=== PATIENT | female | born 1970 | race American Indian/Alaskan Native ===

== ENCOUNTER 2016-12-06 09:56 | Emergency (ER) | payer OTHER ==
[2016-12-06 11:06] VITALS: BP 157/97
[2016-12-06] MEDS ORDERED: LIDOCAINE VISCOUS 2% PO ONE (12:43)
[2016-12-06] MEDS ORDERED: TORADOL IM ONE (12:43)
[2016-12-06] MEDS ORDERED: DECADRON PO ONE (13:30)
[2016-12-06] MEDS ORDERED: NORCO 5/325 PO ONE (13:57)
[2016-12-06] MEDS ORDERED: ZOFRAN ODT PO ONE (13:57)
[2016-12-06] MEDS ORDERED: BENADRYL PO ONE (13:57)
--- NOTE | 2016-12-06 15:07 | Emergency Department Report ---
Entered by STEFFANY NIELSEN, acting as scribe for NATY RAO PA. - General Chief Complaint: Sore Throat Stated Complaint: SORE THROAT/EARACHE/FEVER Time Seen by Provider: 12/06/16 11:25 Source: patient Mode of arrival: Ambulatory Limitations: No Limitations - History of Present Illness Initial Comments: 46 y/o female with Hx of HTN, presents to the ED c/o non-productive cough beginning 5 days ago. The symptoms are not alleviated by OTC cough medication. Associated symptoms of bilateral earache, sore throat, headache, subjective fever, chills, nausea, abdominal soreness due to coughing, and generalized body aches, but she denies weakness, numbness, vomiting, SOB, abdominal pain, and chest pain. Patient is compliant with her prescribed HCTZ for HTN. Positive for history of migraine headaches. Patient states that this feels like her regular migraine headache. No head injury or trauma. Patient is currently not on any abortive therapy. MD Complaint: fever (subjective), cough (non-productive), sore throat, other ( bilateral earache) -: days(s) (4 days) Severity: moderate Consistency: constant Improves With: nothing, other (patient has been taking OTC cough medication) Worsens With: nothing Context: other (patient denies sick contacts) Associated Symptoms: fever (subjective), chills, myalgias (generalized body aches), headache, sore throat, cough (non-productive), nausea, ear pain ( bilateral ), other (abdominal soreness from coughing). denies: chest pain, shortness of breath, vomiting - Related Data Home Medications Medication Instructions Recorded Confirmed Last Taken Hydrochlorothiazide [HCTZ] 50 mg PO QDAY 08/30/16 08/30/16 08/29/16 Previous Rx's Medication Instructions Recorded Last Taken Type HYDROcodone/APAP 5-325 [Jackson 1 each PO Q6HR PRN #10 tablet 08/30/16 Unknown Rx 5/325] Fluticasone [Flonase] 1 spray NS QDAY #1 bottle 12/06/16 Unknown Rx Naproxen [Naprosyn] 500 mg PO BID #30 tablet 12/06/16 Unknown Rx Promethazine /Codeine 5 ml PO Q6H PRN #100 ml 12/06/16 Unknown Rx [Phenergan/Codeine 6.25-10 mg/5 ml] Allergies Allergy/AdvReac Type Severity Reaction Status Date / Time No Known Allergies Allergy Verified 12/06/16 11:06 ED Review of Systems Comment: All other systems reviewed and negative Constitutional: chills, fever (subjective fever), other (generalized body aches) ENT: ear pain (bilaterally), throat pain Respiratory: cough (non-productive). denies: shortness of breath Cardiovascular: denies: chest pain Gastrointestinal: nausea, other (abdominal soreness from coughing). denies: abdominal pain, vomiting Neurological: headache. denies: weakness, numbness ED Past Medical Hx - Past Medical History Hx Hypertension: Yes - Surgical History Additional Surgical History: TUBAL LIGATION - Social History Smoking Status: Never Smoker Substance Use Type: None - Medications Home Medications: Home Medications Medication Instructions Recorded Confirmed Last Taken Type HYDROcodone/APAP 5-325 [Jackson 1 each PO Q6HR PRN #10 tablet 08/30/16 Unknown Rx 5/325] Hydrochlorothiazide [HCTZ] 50 mg PO QDAY 08/30/16 08/30/16 08/29/16 History Fluticasone [Flonase] 1 spray NS QDAY #1 bottle 12/06/16 Unknown Rx Naproxen [Naprosyn] 500 mg PO BID #30 tablet 12/06/16 Unknown Rx Promethazine /Codeine 5 ml PO Q6H PRN #100 ml 12/06/16 Unknown Rx [Phenergan/Codeine 6.25-10 mg/5 ml] ED Physical Exam - General Limitations: No Limitations - Neurological Exam Neurological exam: Present: alert, oriented X3, CN II-XII intact, normal gait. Absent: motor sensory deficit - Expanded Neurological Exam Expanded Patient oriented to: Present: person, place, time Speech: Present: fluid speech Cranial nerves: EOM's Intact: Normal, Facial Sensation: Normal Cerebellar function: Finger to Nose: Normal, Romberg: Normal Motor strength exam: RUE: 5, LUE: 5, RLE: 5, LLE: 5 Best Eye Response (Radha): (4) open spontaneously Best Motor Response ([place]): (6) obeys commands Best Verbal Response (Radha): (5) oriented Radha Total: 15 - Other Other exam information: GENERAL: The patient is well-developed and well-nourished. Patient is in NAD. HEAD: Normocephalic. Atraumatic. EYES: Extraocular motions are intact, PERRL. EARS: External auditory canals and tympanic membranes clear; hearing grossly intact. NOSE: Normal nasal mucosa with minimal nasal discharge. THROAT: Bilateral tonsilmegaly, posterior pharynx is erythematous. No exudate. Airway is intact. NECK: Supple, full ROM. Positive bilateral anterior cervical lymphadenopathy. No meningitic signs are noted. CHEST/LUNGS: Clear to auscultation throughout. HEART/CARDIOVASCULAR: Regular rate and rhythm. No murmurs, rubs or gallops. ABDOMEN: Abdomen is soft, nontender. Bowel sounds normoactive. No guarding or rebound tenderness. EXTREMITIES: No cyanosis, clubbing or edema. Peripheral pulses intact. Capillary refill less than 2 seconds. ED Course Vital Signs 12/06/16 11:02 Temperature 98.2 F Pulse Rate 93 H Respiratory 18 Rate Blood Pressure 157/97 O2 Sat by Pulse 100 Oximetry ED Medical Decision Making - Lab Data Vital Signs 12/06/16 11:02 Temperature 98.2 F Pulse Rate 93 H Respiratory 18 Rate Blood Pressure 157/97 O2 Sat by Pulse 100 Oximetry - Medical Decision Making Patient presents complaining of non-productive cough beginning 5 days ago. Her rapid flu and strep is negative. Patient was given Toradol, Benadryl, Zofran and Jackson for her headache and reported symptomatic relief. Patient was given Decadron and lidocaine by mouth and reports symptomatic relief. Patient is in no acute distress at this time, non-febrile with normal vital signs. She will be discharged home on promethazine/codeine, Flonase and the person and and is encouraged to follow up with a primary care provider. She is encouraged to return to the emergency room for any worsening symptoms. ED Disposition Clinical Impression: URI (upper respiratory infection) Qualifiers: URI type: unspecified URI Qualified Code(s): J06.9 - Acute upper respiratory infection, unspecified Pharyngitis Qualifiers: Pharyngitis/tonsillitis etiology: unspecified etiology Qualified Code(s): J02.9 - Acute pharyngitis, unspecified Disposition: DISCHARGED TO HOME OR SELFCARE Is pt being admited?: No Does the pt Need Aspirin: No Condition: Stable Instructions: Pharyngitis (ED), Upper Respiratory Infection (ED) Additional Instructions: Follow-up with primary care provider. Return to the emergency department if symptoms worsen. Prescriptions: Fluticasone [Flonase] 1 spray NS QDAY #1 bottle Naproxen [Naprosyn] 500 mg PO BID #30 tablet Promethazine /Codeine [Phenergan/Codeine 6.25-10 mg/5 ml] 5 ml PO Q6H PRN #100 ml PRN Reason: cough Referrals: PRIMARY CARE, [Primary Care Provider] - 3-5 Days [facility] [Outside] - 3-5 Days Forms: Work/School Release Form(ED) Time of Disposition: 12:42 This documentation as recorded by the GIA joe GRACE,accurately reflects the service I personally performed and the decisions made by MAIRA king NATASHA, PA.
== END 2016-12-06 15:18 | disposition home or self-care (01) ==
LOC: ED 09:56
DX: J06.9 Acute upper respiratory infection, unspecified (principal); J02.9 Acute pharyngitis, unspecified; I10 Essential (primary) hypertension; Z98.51 Tubal ligation status
CPT/HCPCS: 87116; 87400; 87430; 96372; 99283; J1885; J8540; Q0162

== ENCOUNTER 2019-03-19 13:40 | Inpatient (IN) | payer OTHER ==
[2019-03-19] MEDS ORDERED: ZOFRAN IV ONE (14:09)
[2019-03-19] MEDS ORDERED: BENTYL PO ONE (14:09)
[2019-03-19] MEDS ORDERED: PEPCID IV ONE (14:09)
[2019-03-19] MEDS ORDERED: CARAFATE PO ONE (14:09)
[2019-03-19] MEDS ORDERED: NACL 0.9% 1000 ML 1,000 ML IV ONE (14:09)
--- NOTE | 2019-03-19 14:13 | Emergency Department Report ---
ED General Adult HPI - General Chief complaint: Chest Pain Stated complaint: CP Time Seen by Provider: 03/19/19 13:53 Source: patient, EMS (ems notes not available at time of chart dictation), RN notes reviewed, old records reviewed Mode of arrival: Stretcher Limitations: No Limitations - History of Present Illness Initial comments: This is a pleasant 49-year-old female. The patient is not known to this provider previously. Patient was admitted to this hospital August 2018 for chest pain. During that time, she had a CT scan of her chest which was negative for pulmonary embolism or thoracic aortic aneurysm or dissection. The patient had a cardiac nuclear stress test which was negative for ischemic findings. Patient has a history of hypertension, obesity, possible GERD, gastritis. Apparently, she was recently diagnosed with presumed type 2 diabetes. Outpatient laboratory studies have recently demonstrated a hemoglobin A1c of 9.5. Outpatient laboratory studies recently showed a blood sugar of 476, and nonspecific transaminitis, also found to have elevated triglycerides, and HDL, and elevated LDL. Patient presents to the emergency room today with complaint of nontraumatic central chest wall pressure, and sensation of almost passing out 6 days ago, and 4 days ago. 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 The patient endorses she did not lose consciousness. The patient endorses no DVT or pulmonary embolism risk factors. The next day, she had no symptoms. Patient states the next day, , she was at work, and again felt hot, lightheaded, and almost passed out. However, she did not pass out. The chest wall pain is central and moved to the right and left breast. There is no radiation to the back, arms or neck. Patient indicates no recent aspirin use. Patient states that she feels short of breath, but has difficulty further explaining. The patient states no exertional dyspnea, and no diaphoresis. She describes nonspecific abdominal cramping, and a few episodes of nonbloody, nonbilious emesis. Currently, she has mild abdominal cramping, and chest pressure. -: Gradual, days(s) Location: chest, abdomen Radiation: non-radiation Quality: aching Consistency: intermittent Improves with: other (chest wall pain increases with palpation. It decreases with rest. It increases with nausea and vomiting.) Worsens with: none Associated Symptoms: chest pain, nausea/vomiting - Related Data Previous Rx's Medication Instructions Recorded Last Taken Type Aspirin EC 81 mg PO QDAY #30 tablet 08/21/18 Unknown Rx AtorvaSTATin [Lipitor] 40 mg PO QHS #30 tablet 08/21/18 Unknown Rx Butalb/Acetamin/Caff 50-325-40 1 tab PO Q6HR PRN #10 tab 08/21/18 Unknown Rx [Fioricet] Carvedilol [Coreg] 6.25 mg PO BID #60 tablet 08/21/18 Unknown Rx Pantoprazole [Protonix TAB] 40 mg PO QDAY #30 tablet 08/21/18 Unknown Rx amLODIPine [Norvasc] 10 mg PO QDAY #30 tablet 08/21/18 Unknown Rx Allergies Allergy/AdvReac Type Severity Reaction Status Date / Time No Known Allergies Allergy Verified 12/06/16 11:06 ED Review of Systems ROS: Stated complaint: CP Other details as noted in HPI Constitutional: denies: fever Eyes: denies: eye discharge ENT: denies: congestion Respiratory: denies: wheezing Cardiovascular: chest pain Gastrointestinal: nausea, vomiting. denies: diarrhea, constipation Genitourinary: frequency. denies: dysuria Musculoskeletal: back pain (chronic lower back). denies: arthralgia, myalgia Skin: denies: lesions Neurological: weakness Psychiatric: anxiety ED Past Medical Hx - Past Medical History Hx Hypertension: Yes Hx Congestive Heart Failure: No Hx Diabetes: Yes Hx Asthma: No Hx COPD: No Hx HIV: No Additional medical history: NIDDM - Surgical History Additional Surgical History: TUBAL LIGATION, Fibroids - Social History Smoking Status: Never Smoker Substance Use Type: None - Medications Home Medications: Home Medications Medication Instructions Recorded Confirmed Last Taken Type Aspirin EC 81 mg PO QDAY #30 tablet 08/21/18 Unknown Rx AtorvaSTATin [Lipitor] 40 mg PO QHS #30 tablet 08/21/18 Unknown Rx Butalb/Acetamin/Caff 50-325-40 1 tab PO Q6HR PRN #10 tab 08/21/18 Unknown Rx [Fioricet] Carvedilol [Coreg] 6.25 mg PO BID #60 tablet 08/21/18 Unknown Rx Pantoprazole [Protonix TAB] 40 mg PO QDAY #30 tablet 08/21/18 Unknown Rx amLODIPine [Norvasc] 10 mg PO QDAY #30 tablet 08/21/18 Unknown Rx ED Physical Exam - General Limitations: No Limitations General appearance: alert, in no apparent distress, obese - Head Head exam: Present: atraumatic, normocephalic - Eye Eye exam: Present: normal appearance, EOMI - ENT ENT exam: Present: normal exam, normal orophraynx, mucous membranes moist, normal external ear exam - Neck Neck exam: Present: normal inspection, full ROM. Absent: tenderness, meningismus - Respiratory Respiratory exam: Present: normal lung sounds bilaterally, chest wall tenderness. Absent: respiratory distress - Cardiovascular Cardiovascular Exam: Present: normal rhythm, tachycardia, normal heart sounds. Absent: bradycardia, irregular rhythm, systolic murmur, diastolic murmur, rubs, gallop - GI/Abdominal GI/Abdominal exam: Present: soft. Absent: distended, tenderness, guarding, rebound, rigid, pulsatile mass - Rectal Rectal exam: Present: normal inspection, normal rectal tone, heme (-) stool, other (chaperoned by Toni Lombardo). Absent: heme (+) stool, black stool, bloody stool - Extremities Exam Extremities exam: Present: normal inspection, full ROM, other (2+ pulses noted in the bilateral upper, lower extremities. Compartments soft. No long bony tenderness. The pelvis is stable.). Absent: pedal edema, calf tenderness - Back Exam Back exam: Present: normal inspection, full ROM. Absent: tenderness, CVA tenderness (R), CVA tenderness (L), paraspinal tenderness, vertebral tenderness - Neurological Exam Neurological exam: Present: alert (there is no past pointing. There is normal heel to [place]. There is negative pronator drift.), oriented X3, other (Extraocular movements intact. Tongue midline. No facial droop. Facial sensation intact to light touch in the V1, V2, V3 distribution bilaterally. 5 and 5 strength in 4 extremities.. Sensation is intact to light touch in 4 extremities.). Absent: motor sensory deficit - Psychiatric Psychiatric exam: Present: anxious - Skin Skin exam: Present: warm, dry, intact, normal color. Absent: rash ED Course Vital Signs 03/19/19 03/19/19 03/19/19 13:50 13:51 14:01 Temperature 99.3 F Pulse Rate 91 H 87 95 H Respiratory 17 14 19 Rate Blood Pressure 162/79 Blood Pressure 150/80 [Left] O2 Sat by Pulse 100 100 100 Oximetry 03/19/19 03/19/19 03/19/19 14:15 14:30 14:45 Temperature Pulse Rate 92 H 89 89 Respiratory 15 19 20 Rate Blood Pressure 162/79 120/54 120/54 Blood Pressure [Left] O2 Sat by Pulse 100 100 100 Oximetry 03/19/19 03/19/19 03/19/19 15:07 15:15 15:30 Temperature Pulse Rate 82 Respiratory 16 18 20 Rate Blood Pressure 120/54 143/60 132/76 Blood Pressure [Left] O2 Sat by Pulse 83 L 100 Oximetry 03/19/19 03/19/19 03/19/19 15:45 16:00 16:15 Temperature Pulse Rate Respiratory 18 19 17 Rate Blood Pressure 132/76 134/71 134/71 Blood Pressure [Left] O2 Sat by Pulse 100 100 99 Oximetry 03/19/19 03/19/19 03/19/19 16:31 17:17 17:30 Temperature Pulse Rate 91 H Respiratory 15 17 Rate Blood Pressure 128/77 128/77 127/74 Blood Pressure [Left] O2 Sat by Pulse 100 99 100 Oximetry 03/19/19 03/19/19 17:45 19:03 Temperature Pulse Rate 85 Respiratory 19 Rate Blood Pressure 127/74 127/74 Blood Pressure [Left] O2 Sat by Pulse 100 92 Oximetry - Reevaluation(s) Reevaluation #1: 03/19/19 14:55 Differential diagnoses, including but not limited to: GERD, gastritis, hiatal hernia, costochondritis, pancreatitis, acute coronary syndrome, pneumonia, pulmonary embolism, gastroparesis, constipation, IBS Plan: 49-year-old female, not hypoxic, no pulmonary embolism or DVT risk factors, recently had cardiac risk stratification at this hospital within the past 7 months, low risk by well's criteria, low risk by YESENIA score, low risk by heart score, EKG is morphologically unchanged from prior. Patient at low risk for major adverse cardiac event. Suspect GERD, gastritis, reflux, hyperglycemia, dehydration is likely etiology. We will treat her symptoms, and obtain appropriate screening laboratory studies. We will reassess once her initial data points have resulted. Reevaluation #2: 03/19/19 16:28 D-dimer positive. No active evidence of vomiting in the ER. No syncope in the ER. New-onset anemia is appreciated, patient has no bright red blood per rectum. She is guaiac negative. No colonoscopy that she is aware. Reevaluation #3: 03/19/19 19:47 CT scan of the chest negative for acute disease. CT scan of the abdomen and pelvis for acute disease. Blood count continue to drop. With chest pain, shortness of breath, near- syncope, patient may be experiencing symptomatic anemia. Patient amenable to pack per blood cell transfusion, and hospitalizations/admission. Discussed with medicine nurse practitioner, Angelina Jacobson who accepts to medical service ED Medical Decision Making - Lab Data Result diagrams: 03/19/19 16:30 03/19/19 14:20 Vital Signs 03/19/19 13:50 Temperature 99.3 F Pulse Rate 91 H Respiratory 17 Rate Blood Pressure 150/80 [Left] O2 Sat by Pulse 100 Oximetry Lab Results 03/19/19 Range/Units 14:20 WBC 5.7 (4.5-11.0) K/mm3 RBC 2.07 L (3.65-5.03) M/mm3 Hgb 7.5 L (10.1-14.3) gm/dl Hct 22.4 L (30.3-42.9) % MCV 108 H (79-97) fl MCH 36 H (28-32) pg MCHC 33 (30-34) % RDW 27.1 H (13.2-15.2) % Plt Count 83 L (140-440) K/mm3 - EKG Data -: EKG Interpreted by [place] EKG shows normal: sinus rhythm Rate: normal - EKG Data Interpretation: unchanged when compared t 03/19/19 14:57 This is a sinus rhythm, 90 bpm, normal axis, QTC within normal limits, left ventricular hypertrophy, Q waves noted in lead 3, abnormal EKG, not consistent with ST elevation myocardial infarction, unchanged from prior EKG from 2017. - Radiology Data Radiology results: pending Critical Care Time: Yes Critical care time in (mins) excluding proc time.: 35 Critical care attestation.: If time is entered above; I have spent that time in minutes in the direct care of this critically ill patient, excluding procedure time. ED Disposition Clinical Impression: Symptomatic anemia, Macrocytic anemia, Near syncope Disposition: DC-09 OP ADMIT IP TO THIS HOSP Is pt being admited?: Yes Condition: Good Referrals: PILAR WALLACE MD [Staff Physician] - 3-5 Days BRIDGETTE GREEN MD [Staff Physician] - 3-5 Days KEILA CASEY MD [Staff Physician] - 3-5 Days
[2019-03-19 14:49] LABS: Hematocrit 22.4 % (30.3-42.9); Hemoglobin 7.5 gm/dl (10.1-14.3); Mean Corpuscular HGB Conc 33 % (30-34); Mean Corpuscular Volume 108 fl (79-97); Red Blood Count 2.07 M/mm3 (3.65-5.03)
[2019-03-19 14:53] LABS: Platelet Count 83 K/mm3 (140-440); Red Cell Distribution Width 27.1 % (13.2-15.2)
--- NOTE | 2019-03-19 15:37 | XRay Report ---
CHEST 2 VIEWS INDICATION: Chest pain. COMPARISON: 08/21/2018 FINDINGS: The trachea, heart, mediastinum, lung treadwell and bony thorax are unremarkable. IMPRESSION: 1. Normal chest x-ray Signer Name: Harrison Juarez Jr, MD Signed: 03/19/2019 3:33 PM Workstation Name: [id number]
[2019-03-19 15:51] LABS: Alanine Aminotransferase 22 units/L (7-56); Albumin 4.5 g/dL (3.9-5); BUN/Creatinine Ratio 11; Blood Urea Nitrogen 9 mg/dL (7-17); Calcium 9.1 mg/dL (8.4-10.2); Hemolysis Index 1
[2019-03-19 16:49] LABS: Hematocrit 20.9 % (30.3-42.9); Hemoglobin 6.9 gm/dl (10.1-14.3); Mean Corpuscular HGB Conc 33 % (30-34); Mean Corpuscular Volume 108 fl (79-97); Red Blood Count 1.93 M/mm3 (3.65-5.03)
[2019-03-19] MEDS ORDERED: TYLENOL PO ONE (16:56)
[2019-03-19] MEDS ORDERED: REGLAN IV ONE (16:56)
[2019-03-19 17:22] LABS: Bacteria,Urine 1+ /HPF (Negative); Bilirubin,Urine NEG (Negative); Blood,Urine NEG (Negative); Color,Urine Yellow (Yellow); Mucus,Urine FEW /HPF; Protein,Urine <15 mg/dL mg/dL (Negative); Urobilinogen,Urine < 2.0 mg/dL (<2.0)
[2019-03-19 17:23] LABS: Red Cell Distribution Width 26.6 % (13.2-15.2)
[2019-03-19 17:24] LABS: Platelet Count 82 K/mm3 (140-440)
[2019-03-19] MEDS ORDERED: NACL 0.9% 500 ML 500 ML IV ONE (17:31)
[2019-03-19] MEDS ORDERED: MACROBID PO ONE (18:07)
--- NOTE | 2019-03-19 18:59 | Cat Scan Report ---
CT abdomen pelvis w con INDICATION: cp n/v abd pain n/v. TECHNIQUE: All CT scans at this location are performed using the following dose modulation technique: Automated exposure control. CONTRAST: Omnipaque 350, 100 cc IV injection. COMPARISON: None available. CT abdomen: The parenchymal organs are unremarkable in appearance. Negative for abdominal mass, fluid collection or inflammation. The bowel is not dilated or thickened. The gallbladder contains calcified stones. Negative for wall thickening or biliary dilatation. CT PELVIS: Negative for mass, fluid or inflammation. Status post previous hysterectomy. A normal appendix is identified. IMPRESSION: 1. Negative for obstruction or localized inflammation. 2. Calcified gallstones. Signer Name: Michael Talavera MD Signed: 03/19/2019 6:55 PM Workstation Name: [id number]
--- NOTE | 2019-03-19 19:07 | Cat Scan Report ---
CT angio chest INDICATION / CLINICAL INFORMATION: cp n/v. TECHNIQUE: Axial CT images were obtained after injection of Omnipaque 350, 100 cc IV contrast using CTA protocol . 3 plane MIP / 3D reconstructions were produced. All CT scans at this location are performed using C T dose reduction for ALARA by means of automated exposure control. COMPARISON: None available. FINDINGS: The lungs contain no mass, infiltrate or pleural fluid. Negative for mediastinal mass or adenopathy. There is no aneurysm, dissection or pulmonary embolus. Imaging of the upper abdomen is unremarkable. IMPRESSION: Negative for pulmonary embolus or pneumonia. Signer Name: Michael Talavera MD Signed: 03/19/2019 7:02 PM Workstation Name: [id number]
--- NOTE | 2019-03-19 19:58 | History and Physical Report ---
History of Present Illness Chief complaint: Im hurting right here History of present illness: 48 YO Female with Obesity, HTN, HLD, GERD, Migraine Headache, DM presents to ED for evaluation. Pt states that she experienced pain in her chest, however upon further evaluation the patient localizes her abdomen as the site of the discomfort. Pt states that she has experienced discomfort in her abdomen over the past 4 days. Pt reports that her episodes last for about 4 minutes, and radiates across her abdomen. Pt acknowledges approximately 4-5 episodes daily. Pt acknowledges weakness, decreased exercise tolerance, and shortness of breath with exertion. EMS notified, and upon arrival the patient was transported to [facility]. Pt seen and evaluated in ED and found to have UTI, and clinical symptoms and lab findings concerning for MDS. Pt transfused with PRBC. PT denies fever, chills, CP uopn further questioning, back pain, BRBPR, Hemoptysis, Dark stool, prolonged travel, immobility, or recent ill contacts. PT admitted to medical floor with remote telemetry. Hematology service consulted in ED. Prior admission on 08/21/18 reviewed. All listed medication reconciled at time of admission. Past History Past Medical History: diabetes, GERD, hypertension, hyperlipidemia, migraines Past Surgical History: Other (Uterine fibroid,tubal ligation) Social history: single. denies: smoking, alcohol abuse, prescription drug abuse Family history: hypertension Medications and Allergies Allergies Allergy/AdvReac Type Severity Reaction Status Date / Time No Known Allergies Allergy Verified 12/06/16 11:06 Home Medications Medication Instructions Recorded Confirmed Last Taken Type Aspirin EC 81 mg PO QDAY #30 tablet 08/21/18 Unknown Rx AtorvaSTATin [Lipitor] 40 mg PO QHS #30 tablet 08/21/18 Unknown Rx Butalb/Acetamin/Caff 50-325-40 1 tab PO Q6HR PRN #10 tab 08/21/18 Unknown Rx [Fioricet] Carvedilol [Coreg] 6.25 mg PO BID #60 tablet 08/21/18 Unknown Rx Pantoprazole [Protonix TAB] 40 mg PO QDAY #30 tablet 08/21/18 Unknown Rx amLODIPine [Norvasc] 10 mg PO QDAY #30 tablet 08/21/18 Unknown Rx Review of Systems Constitutional: weakness, malaise, lethargy, no weight loss, no weight gain, no fever, no chills Ears, nose, mouth and throat: no ear pain, no ear discharge, no tinnitis, no decreased hearing, no nose pain, no nasal congestion Breasts: no change in shape, no swelling, no mass Cardiovascular: no chest pain, no orthopnea, no palpitations, no rapid/irregular heart beat, no edema, no syncope Respiratory: no cough, no cough with sputum, no excessive sputum, no hemoptysis Gastrointestinal: abdominal pain, no nausea, no vomiting, no diarrhea, no constipation, no BRBPR, no melena, no hematochezia, no loss of appetite Genitourinary Female: no pelvic pain, no flank pain, no menorrhagia, no dysuria Rectal: no pain, no incontinence, no bleeding Musculoskeletal: no neck stiffness, no neck pain, no shooting arm pain, no arm numbness/tingling, no low back pain, no shooting leg pain, no leg numbness/tingling Integumentary: no rash, no pruritis, no redness, no sores, no wounds Neurological: no transient paralysis, no paralysis, no weakness, no parathesias, no numbness Psychiatric: no anxiety, no memory loss, no change in sleep habits, no sleep disturbances, no insomnia, no hypersomnia, no change in appetite, no change in libido Endocrine: no cold intolerance, no heat intolerance, no polyphagia, no excessive thirst Hematologic/Lymphatic: no easy bruising, no easy bleeding, no lymphadenopathy, no lymphedema Allergic/Immunologic: no urticaria, no allergic rhinitis, no wheezing, no persistent infections, no anaphylaxis, no angioedema Exam - Constitutional Vitals: Temp Pulse Resp BP Pulse Ox 99.3 F 85 19 127/74 92 03/19/19 13:50 03/19/19 17:45 03/19/19 17:45 03/19/19 19:03 03/19/19 19:03 General appearance: Present: mild distress - EENT Eyes: Present: PERRL (conjunctival pallor) ENT: hearing intact, clear oral mucosa - Neck Neck: Present: supple, normal ROM - Respiratory Respiratory effort: normal Respiratory: bilateral: CTA - Cardiovascular Heart Sounds: Present: S1 & S2. Absent: rub, click - Extremities Extremities: pulses symmetrical, No edema Peripheral Pulses: within normal limits - Abdominal General gastrointestinal: Present: soft, non-tender, non-distended, normal bowel sounds Female genitourinary: Present: normal - Integumentary Integumentary: Present: clear, warm, dry - Musculoskeletal Musculoskeletal: gait normal, strength equal bilaterally - Psychiatric Psychiatric: appropriate mood/affect, intact judgment & insight - Neurologic Neurologic: CNII-XII intact, moves all extremities Results - Labs CBC & Chem 7: 03/19/19 16:30 03/19/19 14:20 Labs: Abnormal lab results 03/19/19 03/19/19 03/19/19 Range/Units 14:20 14:20 14:20 RBC 2.07 L (3.65-5.03) M/mm3 Hgb 7.5 L (10.1-14.3) gm/dl Hct 22.4 L (30.3-42.9) % MCV 108 H (79-97) fl MCH 36 H (28-32) pg RDW 27.1 H (13.2-15.2) % Plt Count 83 L (140-440) K/mm3 D-Dimer 1457.01 H (0-234) ng/mlDDU Glucose 199 H (65-100) mg/dL Urine WBC (Auto) (0.0-6.0) /HPF 03/19/19 03/19/19 Range/Units 16:30 16:56 RBC 1.93 L (3.65-5.03) M/mm3 Hgb 6.9 L (10.1-14.3) gm/dl Hct 20.9 L (30.3-42.9) % MCV 108 H (79-97) fl MCH 36 H (28-32) pg RDW 26.6 H (13.2-15.2) % Plt Count 82 L (140-440) K/mm3 D-Dimer (0-234) ng/mlDDU Glucose (65-100) mg/dL Urine WBC (Auto) 15.0 H (0.0-6.0) /HPF Assessment and Plan - Patient Problems (1) UTI (urinary tract infection) Current Visit: Yes Status: Acute Qualifiers: Encounter type: initial encounter Plan to address problem: IV antibiotic therapy, urinalysis, CBC, CMP, (2) MDS (myelodysplastic syndrome) Current Visit: Yes Status: Acute Plan to address problem: Hematology consulted, LDH, Haptoglobin, thyroid panel, HIV panel, folic acid, B12 level, Iron panel (3) HTN (hypertension) Current Visit: Yes Status: Acute Qualifiers: Hypertension type: essential hypertension Qualified Code(s): I10 - Essential (primary) hypertension Plan to address problem: Monitor bp q shift, supportive care, continue medical management. (4) GERD (gastroesophageal reflux disease) Current Visit: Yes Status: Acute Qualifiers: Esophagitis presence: with esophagitis Qualified Code(s): K21.0 - Gastro- esophageal reflux disease with esophagitis Plan to address problem: Carafate POx1, PPi therapy, outpatient GI F/U care. (5) Migraine Current Visit: Yes Status: Acute Qualifiers: Intractability: not intractable Plan to address problem: Imitrex, supportive are, (6) Obesity (BMI 30-39.9) Current Visit: Yes Status: Acute Plan to address problem: Balanced diet, increased physical activity at discharge. (7) HLD (hyperlipidemia) Current Visit: Yes Status: Acute Qualifiers: Hyperlipidemia type: mixed hyperlipidemia Qualified Code(s): E78.2 - Mixed hyperlipidemia Plan to address problem: Low cholesterol diet, risk factor reduction, lipid panel, (8) DVT prophylaxis Current Visit: Yes Status: Acute Plan to address problem: SCD to BLE while in bed, Pt ambulating,
[2019-03-19] MEDS ORDERED: SODIUM CHLORIDE FLUSH SYRINGE 10 ML IV PRN (20:21)
[2019-03-19] MEDS ORDERED: PERCOCET 5/325 PO PRN (20:21)
[2019-03-19] MEDS ORDERED: TYLENOL PO PRN (20:21)
[2019-03-19] MEDS ORDERED: ZOFRAN IV PRN (20:21)
[2019-03-19] MEDS ORDERED: PROVENTIL IH PRN (20:21)
[2019-03-19] MEDS ORDERED: IMITREX PO ONE (21:30)
[2019-03-19 21:51] LABS: % Iron Saturation 14.63 %
[2019-03-19 21:57] LABS: Free T4 (Free Thyroxine) 1.37 ng/dL (0.76-1.46)
[2019-03-19] MEDS: ROCEPHIN/NS 1 GM/50 ML 1 GM/50 ML BAG IV SCH (23:23)
[2019-03-19] MEDS: SODIUM CHLORIDE FLUSH SYRINGE 10 ML IV SCH (23:24)
[2019-03-20] MEDS ORDERED: D50W (25GM) Syringe IV PRN (09:00)
[2019-03-20 10:34] LABS: Hemoglobin 9.9 gm/dl (10.1-14.3); Mean Corpuscular HGB Conc 34 % (30-34); Mean Corpuscular Volume 99 fl (79-97); Red Blood Count 2.92 M/mm3 (3.65-5.03)
[2019-03-20] MEDS: PROTONIX PO SCH ×2 (10:36→15:40)
[2019-03-20] MEDS: SODIUM CHLORIDE FLUSH SYRINGE 10 ML IV SCH ×2 (10:36→22:10)
[2019-03-20 10:38] LABS: Platelet Count 90 K/mm3 (140-440); Red Cell Distribution Width 27.4 % (13.2-15.2)
[2019-03-20 10:57] LABS: Alanine Aminotransferase 18 units/L (7-56); BUN/Creatinine Ratio 9; Blood Urea Nitrogen 7 mg/dL (7-17); Calcium 8.6 mg/dL (8.4-10.2); Hemolysis Index 16
[2019-03-20] MEDS: HumaLOG SUB-Q SCH ×3 (12:35→22:07)
--- NOTE | 2019-03-20 14:40 | Progress Note ---
Assessment and Plan Assessment and plan: Symptomatic anemia with chest pain - Cardiac enzymes are negative, CTA negative for PE or pneumonia - Patient hemoglobin was 6.9 and transfused a unit of blood - We'll check posttransfusion H&H - Hematology oncology consult placed Diabetes mellitus with hyperglycemia - We'll get hemoglobin A1c, sliding scale insulin and basal insulin for now - Accu-Chek, ADA diet, we will adjust insulin as needed Hypertension - We will resume home medications UTI - On IV antibiotic DVT prophylaxis, SCD because of anemia Disposition; continue inpatient care History Interval history: Patient was seen and evaluated this morning, chest pain resolved. No shortness of breath or dizziness. Hospitalist Physical - Physical exam Narrative exam: Not in cardiopulmonary distress. The patient appeared well nourished and normally developed. Vital signs as documented. Head exam is unremarkable. No scleral icterus . Neck is without jugular venous distension, thyromegaly, or carotid bruits. Lungs are clear to auscultation. Cardiac exam reveals regular rate and Rhythm. Abdominal exam reveals normal bowel sounds, no masses, no organomegaly and no aortic enlargement. Extremities are nonedematous and both femoral and pedal pulses are normal. [employer]: Alert and oriented 3. No focal weakness. - Constitutional Vitals: Temp Pulse Resp BP Pulse Ox 98.5 F 76 20 143/77 100 03/20/19 11:57 03/20/19 11:57 03/20/19 11:57 03/20/19 11:57 03/20/19 14:23 General appearance: Present: mild distress Results - Labs CBC & Chem 7: 03/20/19 Unknown 03/20/19 Unknown Labs: Laboratory Last Values WBC 4.9 K/mm3 (4.5-11.0) 03/20/19 Unknown RBC 2.92 M/mm3 (3.65-5.03) L 03/20/19 Unknown Hgb 9.9 gm/dl (10.1-14.3) L D 03/20/19 Unknown Hct 29.0 % (30.3-42.9) L D 03/20/19 Unknown MCV 99 fl (79-97) H 03/20/19 Unknown MCH 34 pg (28-32) H 03/20/19 Unknown MCHC 34 % (30-34) 03/20/19 Unknown RDW 27.4 % (13.2-15.2) H 03/20/19 Unknown Plt Count 90 K/mm3 (140-440) L 03/20/19 Unknown 1457.01 ng/mlDDU (0-234) H 03/19/19 14:20 Sodium 139 mmol/L (137-145) 03/20/19 Unknown Potassium 4.0 mmol/L (3.6-5.0) 03/20/19 Unknown Chloride 102.8 mmol/L (98-107) 03/20/19 Unknown Carbon Dioxide 22 mmol/L (22-30) 03/20/19 Unknown 18 mmol/L 03/20/19 Unknown BUN 7 mg/dL (7-17) 03/20/19 Unknown 0.8 mg/dL (0.7-1.2) 03/20/19 Unknown Estimated GFR > 60 ml/min 03/20/19 Unknown 9 % 03/20/19 Unknown Glucose 288 mg/dL (65-100) H 03/20/19 Unknown POC Glucose 265 (70-105) H 03/20/19 12:07 7.8 % (4-6) H 03/20/19 Unknown Calcium 8.6 mg/dL (8.4-10.2) 03/20/19 Unknown Iron 43 ug/dL (37-170) 03/19/19 20:39 TIBC 294 mcg/dL (250-450) 03/19/19 20:39 % Saturation 14.63 % 03/19/19 20:39 232 mg/dl (192-382) 03/19/19 20:39 0.60 mg/dL (0.1-1.2) 03/20/19 Unknown AST 14 units/L (5-40) 03/20/19 Unknown ALT 18 units/L (7-56) 03/20/19 Unknown 48 units/L (35-129) 03/20/19 Unknown 2020 units/L (91-180) H 03/19/19 20:39 < 0.010 ng/mL (0.00-0.029) 03/19/19 16:30 7.2 g/dL (6.3-8.2) 03/20/19 Unknown 4.0 g/dL (3.9-5) 03/20/19 Unknown 1.3 % 03/20/19 Unknown 35 units/L (13-60) 03/19/19 14:20 Vitamin B12 268.3 pg/mL (211-911) 03/19/19 20:39 TSH 1.810 mlU/mL (0.270-4.200) 03/19/19 20:39 Free T4 1.37 ng/dL (0.76-1.46) 03/19/19 20:39 Yellow (Yellow) 03/19/19 16:56 Slightly-cloudy (Clear) 03/19/19 16:56 5.0 (5.0-7.0) 03/19/19 16:56 Ur Specific King 1.012 (1.003-1.030) 03/19/19 16:56 <15 mg/dl mg/dL (Negative) 03/19/19 16:56 Neg mg/dL (Negative) 03/19/19 16:56 Neg mg/dL (Negative) 03/19/19 16:56 Neg (Negative) 03/19/19 16:56 Neg (Negative) 03/19/19 16:56 Neg (Negative) 03/19/19 16:56 < 2.0 mg/dL (<2.0) 03/19/19 16:56 Ur Leukocyte Esterase Mod (Negative) 03/19/19 16:56 15.0 /HPF (0.0-6.0) H 03/19/19 16:56 2.0 /HPF (0.0-6.0) 03/19/19 16:56 U Epithel Cells (Auto) 3.0 /HPF (0-13.0) 03/19/19 16:56 1+ /HPF (Negative) 03/19/19 16:56 Few /HPF 03/19/19 16:56 HIV 1&2 Antibody Rapid Non react (Non React) 03/19/19 20:39 Non react (Non React) 03/19/19 20:39 Blood Type O POSITIVE 03/19/19 18:29 Antibody Screen Negative 03/19/19 18:29 Crossmatch See Detail 03/19/19 18:29 Active Medications - Current Medications Current Medications: Generic Name Dose Route Start Last Admin Trade Name Freq PRN Reason Stop Dose Admin Acetaminophen 650 mg 03/19/19 20:21 Tylenol PO Q4H PRN Pain MILD(1-3)/Fever >100.5/FONSECA Albuterol 2.5 mg 07/01/19 20:21 Proventil IH Q4HRT PRN Shortness Of Breath Dextrose 50 ml 03/20/19 09:00 D50w (25gm) Syringe IV PRN PRN Hypoglycemia Ceftriaxone Sodium 1 gm in 50 mls @ 100 mls/hr 03/19/19 21:00 03/19/19 23:23 Rocephin/Ns 1 Gm/50 Ml IV 100 mls/hr Q24H KEITH Administration Protocol Insulin Glargine 10 units 03/20/19 22:00 Lantus SUB-Q QHS KEITH Insulin Human Lispro 0 unit 03/20/19 11:30 03/20/19 12:35 Humalog SUB-Q 6 unit ACHS KEITH Administration Protocol Ondansetron HCl 4 mg 03/19/19 20:21 Zofran IV Q8H PRN Nausea And Vomiting Oxycodone/Acetaminophen 1 tab 03/19/19 20:21 Percocet 5/325 PO Q6H PRN Pain, Moderate (4-6) Pantoprazole Sodium 40 mg 03/20/19 10:00 03/20/19 10:36 Protonix PO 40 mg QDAY KEITH Administration Sodium Chloride 10 ml 03/19/19 22:00 03/20/19 10:36 Sodium Chloride Flush Syringe 10 Ml IV 10 ml BID KEITH Administration Sodium Chloride 10 ml 03/19/19 20:21 Sodium Chloride Flush Syringe 10 Ml IV PRN PRN LINE FLUSH
[2019-03-20 15:11] LABS: Anisocytosis 2+; Band Neutrophils # (Manual) 0.1 K/mm3; Basophils % (Manual) 0 % (0.0-1.8); Eosinophils % (Manual) 0 % (0.0-4.3); Macrocytosis 1+; Platelet Estimate Consistent w Auto; Total Cells Counted 100
[2019-03-20 15:14] LABS: Hematocrit 29.6 % (30.3-42.9); Hemoglobin 10.1 gm/dl (10.1-14.3)
[2019-03-20] MEDS: NORVASC PO SCH (15:41)
--- NOTE | 2019-03-20 18:29 | Event Note ---
Date: 03/20/19 [id number]
[2019-03-20] MEDS ORDERED: VITAMIN B-12 SUB-Q ONE (19:30)
[2019-03-20] MEDS: ROCEPHIN/NS 1 GM/50 ML 1 GM/50 ML BAG IV SCH (22:07)
[2019-03-20] MEDS: COREG PO SCH (22:08)
[2019-03-20] MEDS: LANTUS SUB-Q SCH (22:09)
--- NOTE | 2019-03-21 01:29 | Consultation ---
REFRRING PHYSICIAN: Dr. Hart REASON FOR CONSULTATION: Anemia. HISTORY OF PRESENT ILLNESS: I saw the patient, a 49-year-old female in the medical floor. The patient has a history of hypertension, hyperlipidemia, GERD, headaches, newly diagnosed diabetes, came to the hospital. The patient states that a few days ago, she was having dizziness that has persisted. Next day, she went to the urgent care center. Her blood sugars were in 500. She was given hydration and insulin. She was called back after a few days, the blood sugar persisted. She was sent to the hospital. There is a mention of chest discomfort. There is mention of abdominal discomfort also. During this admission, the patient was found to have anemia. Blood transfusion has been given. I have been asked to evaluate the patient for same. There is a question if this is MDS. At this time, no headache, no visual disturbances. No ear discharge, no chest pain, no palpitations. History of exertional shortness of breath and presyncope present. No hematemesis, no hematochezia, no hemoptysis. No seizure, syncope or loss of consciousness. No fever or chills. PAST MEDICAL HISTORY: Newly diagnosed diabetes, GERD, hypertension, hyperlipidemia, migraines. PAST SURGICAL HISTORY: Includes uterine fibroid tubal ligation. SOCIAL HISTORY: Single, no history of tobacco or alcohol usage. FAMILY HISTORY: Hypertension. Works at a warehouse. ALLERGIES: None. HOME MEDICATIONS: Include atorvastatin, carvedilol, Protonix, amlodipine, aspirin. PHYSICAL EXAMINATION: VITAL SIGNS: Temperature 98, pulse 75, respirations 20, BP 118/79. HEENT: Pallor present. No icterus. NECK: No neck lymph nodes. HEART: S1, S2. LUNGS: Clear to auscultation. ABDOMEN: Soft. EXTREMITIES: No calf tenderness. NEUROLOGIC: Alert, awake and oriented. LABORATORY DATA: White cell 4.9, admission hemoglobin 6.9, MCV 99, platelets 90, admission platelet was 83, nucleated RBC 3%. D-dimer is elevated. Potassium is 4, creatinine 0.8, calcium 8.6. Serum iron 43, bilirubin 0.6. B12 is 268. TSH is 1.8. HIV 1 and 2 negative[address] RADIOLOGY: CT of the chest, no PE. Abdomen CT, parenchymal organs are unremarkable. Negative for abdominal masses, fluid collection, status post hysterectomy. ASSESSMENT: 1. Presyncope. The patient's hemoglobin was very low. MCV is not low. In fact admission, MCV 108. B12 is low normal. We will give a trial with B12 injections. 2. Differential diagnosis includes myelodysplastic syndrome. I spoke to Dr. Escobar, who will review the smear. 3. History of diabetes, newly diagnosed. The patient's sugar was in 500. Sugar now is in 200s. 4. Hypertension. 5. Gastroesophageal reflux disease. 6. History of obesity. 7. History of migraines. 8. Elevated D-dimers. PLAN: We will look into a bone marrow aspiration biopsy. Discussed with the patient regarding this diagnosis. Transfusion support has been given. We will follow the patient during inpatient and then in the clinic setting. JOB# [id number] MELY/BRENTON
--- NOTE | 2019-03-21 08:26 | Hem/Onc Progress Note ---
Assessment and Plan 1. Presyncope. The patient's hemoglobin was very low. MCV is not low. At admission, MCV 108. B12 is low normal. We will give a trial with B12 injections. 2. Differential diagnosis includes myelodysplastic syndrome. I spoke to Dr. Escobar, who will review the smear. 3. History of diabetes, newly diagnosed. The patient's sugar was in 500. Sugar now is in 200s. 4. Hypertension. 5. Gastroesophageal reflux disease. 6. History of obesity. 7. History of migraines. 8. Elevated D-dimers. bone marrow aspiration biopsy. Discussed with the patient regarding this diagnosis. Transfusion support has been given. We will follow the patient during inpatient and then in the clinic setting. d/w dr elizalde - Patient Problems (1) Macrocytic anemia Current Visit: Yes Status: Acute Subjective Date of service: 03/21/19 Principal diagnosis: anemia Interval history: feeling better - due bmbx Objective - Exam Narrative Exam: Pain none General appearance no acute distress Performance status selfcare Eyes EOM intact ENT hearing intact/ Clear oral mucosa LNs cervical not palpable Neck normal ROM Respiratory Normal Breath sounds - CTA CVS S1 S2 + Extremities normal temperature/ no edema General GI Soft non tender Rectal deferred Female - deferred Skin warm Musculoskeletal strength equal bilaterally Neurologically no Focal deficit/ moves all extremities - Constitutional Vitals: Last Vital Signs Temp 98.5 F 03/21/19 05:37 Pulse 76 03/21/19 05:37 Resp 18 03/21/19 05:37 BP 121/72 03/21/19 05:37 Pulse Ox 98 03/21/19 05:37 - Labs Lab Results: Laboratory Results - last 24 hr 03/19/19 03/20/19 03/20/19 18:29 12:07 15:03 WBC RBC Hgb 10.1 Hct 29.6 L MCV MCH MCHC RDW Plt Count Add Manual Diff Total Counted Seg Neuts % (Manual) Band Neutrophils % Lymphocytes % (Manual) Reactive Lymphs % (Man) Monocytes % (Manual) Eosinophils % (Manual) Basophils % (Manual) Metamyelocytes % Myelocytes % Promyelocytes % Blast Cells % Nucleated RBC % Seg Neutrophils # Man Band Neutrophils # Lymphocytes # (Manual) Abs React Lymphs (Man) Monocytes # (Manual) Eosinophils # (Manual) Basophils # (Manual) Metamyelocytes # Myelocytes # Promyelocytes # Blast Cells # Pathologist Review Hypersegmented Neuts Hyposegmented Neuts Hypogranular Neuts Smudge Cells Toxic Granulation Toxic Vacuolation Dohle Bodies Pelger-Huet Anomaly [place] Rods Platelet Estimate Clumped Platelets Plt Clumps, EDTA Large Platelets Giant Platelets Platelet Satelliting Plt Morphology Comment RBC Morphology Dimorphic RBCs Polychromasia Hypochromasia Poikilocytosis Anisocytosis Microcytosis Macrocytosis Spherocytes Pappenheimer Bodies Sickle Cells Target Cells Tear Drop Cells Ovalocytes Helmet Cells Aragon-Tolleson Bodies [place] Rings Siri Cells Bite Cells Crenated Cell Elliptocytes Acanthocytes (Spur) Rouleaux Hemoglobin C Crystals Schistocytes Malaria parasites Rory Bodies Hem Pathologist Commnt Sodium Potassium Chloride Carbon Dioxide Anion Gap BUN Creatinine Estimated GFR BUN/Creatinine Ratio Glucose POC Glucose 265 H Hemoglobin A1c Calcium Total Bilirubin AST ALT Alkaline Phosphatase Total Protein Albumin Albumin/Globulin Ratio Crossmatch See Detail 03/20/19 03/20/19 03/20/19 17:08 22:02 Unknown WBC 4.9 RBC 2.92 L Hgb 9.9 L D Hct 29.0 L D MCV 99 H MCH 34 H MCHC 34 RDW 27.4 H Plt Count 90 L Add Manual Diff Complete Total Counted 100 Seg Neuts % (Manual) 59.0 Band Neutrophils % 3.0 Lymphocytes % (Manual) 26.0 Reactive Lymphs % (Man) 0 Monocytes % (Manual) 12.0 H Eosinophils % (Manual) 0 Basophils % (Manual) 0 Metamyelocytes % 0 Myelocytes % 0 Promyelocytes % 0 Blast Cells % 0 Nucleated RBC % 3.0 H Seg Neutrophils # Man 2.9 Band Neutrophils # 0.1 Lymphocytes # (Manual) 1.3 Abs React Lymphs (Man) 0.0 Monocytes # (Manual) 0.6 Eosinophils # (Manual) 0.0 Basophils # (Manual) 0.0 Metamyelocytes # 0.0 Myelocytes # 0.0 Promyelocytes # 0.0 Blast Cells # 0.0 Pathologist Review Hypersegmented Neuts Not Reportable Hyposegmented Neuts Not Reportable Hypogranular Neuts Not Reportable Smudge Cells Not Reportable Toxic Granulation Not Reportable Toxic Vacuolation Not Reportable Dohle Bodies Not Reportable Pelger-Huet Anomaly Not Reportable Keya Rods Not Reportable Platelet Estimate Consistent w auto Clumped Platelets Not Reportable Plt Clumps, EDTA Not Reportable Large Platelets Not Reportable Giant Platelets Not Reportable Platelet Satelliting Not Reportable Plt Morphology Comment Not Reportable RBC Morphology Not Reportable Dimorphic RBCs Not Reportable Polychromasia Not Reportable Hypochromasia Not Reportable Poikilocytosis Not Reportable Anisocytosis 2+ Microcytosis 1+ Macrocytosis 1+ Spherocytes Not Reportable Pappenheimer Bodies Not Reportable Sickle Cells Not Reportable Target Cells Not Reportable Tear Drop Cells Not Reportable Ovalocytes Not Reportable Helmet Cells Not Reportable Aragon-Tolleson Bodies Not Reportable [place] Rings Not Reportable Siri Cells Not Reportable Bite Cells Not Reportable Crenated Cell Not Reportable Elliptocytes Not Reportable Acanthocytes (Spur) Not Reportable Rouleaux Not Reportable Hemoglobin C Crystals Not Reportable Schistocytes Not Reportable Malaria parasites Not Reportable Rory Bodies Not Reportable Hem Pathologist Commnt Sent to pathology Sodium Potassium Chloride Carbon Dioxide Anion Gap BUN Creatinine Estimated GFR BUN/Creatinine Ratio Glucose POC Glucose 191 H 304 H Hemoglobin A1c Calcium Total Bilirubin AST ALT Alkaline Phosphatase Total Protein Albumin Albumin/Globulin Ratio Crossmatch 03/20/19 03/20/19 03/21/19 Unknown Unknown 07:52 WBC RBC Hgb Hct MCV MCH MCHC RDW Plt Count Add Manual Diff Total Counted Seg Neuts % (Manual) Band Neutrophils % Lymphocytes % (Manual) Reactive Lymphs % (Man) Monocytes % (Manual) Eosinophils % (Manual) Basophils % (Manual) Metamyelocytes % Myelocytes % Promyelocytes % Blast Cells % Nucleated RBC % Seg Neutrophils # Man Band Neutrophils # Lymphocytes # (Manual) Abs React Lymphs (Man) Monocytes # (Manual) Eosinophils # (Manual) Basophils # (Manual) Metamyelocytes # Myelocytes # Promyelocytes # Blast Cells # Pathologist Review Hypersegmented Neuts Hyposegmented Neuts Hypogranular Neuts Smudge Cells Toxic Granulation Toxic Vacuolation Dohle Bodies Pelger-Huet Anomaly [place] Rods Platelet Estimate Clumped Platelets Plt Clumps, EDTA Large Platelets Giant Platelets Platelet Satelliting Plt Morphology Comment RBC Morphology Dimorphic RBCs Polychromasia Hypochromasia Poikilocytosis Anisocytosis Microcytosis Macrocytosis Spherocytes Pappenheimer Bodies Sickle Cells Target Cells Tear Drop Cells Ovalocytes Helmet Cells Aragon-Tolleson Bodies [place] Rings Siri Cells Bite Cells Crenated Cell Elliptocytes Acanthocytes (Spur) Rouleaux Hemoglobin C Crystals Schistocytes Malaria parasites Rory Bodies Hem Pathologist Commnt Sodium 139 Potassium 4.0 Chloride 102.8 Carbon Dioxide 22 Anion Gap 18 BUN 7 Creatinine 0.8 Estimated GFR > 60 BUN/Creatinine Ratio 9 Glucose 288 H POC Glucose 175 H Hemoglobin A1c 7.8 H Calcium 8.6 Total Bilirubin 0.60 AST 14 ALT 18 Alkaline Phosphatase 48 Total Protein 7.2 Albumin 4.0 Albumin/Globulin Ratio 1.3 Crossmatch Medications & Allergies - Medications Allergies/Adverse Reactions: Allergies No Known Allergies Allergy (Verified 12/06/16 11:06) Home Medications: Home Medications Medication Instructions Recorded Confirmed Last Taken Type Aspirin EC 81 mg PO QDAY #30 tablet 08/21/18 Unknown Rx AtorvaSTATin [Lipitor] 40 mg PO QHS #30 tablet 08/21/18 Unknown Rx Butalb/Acetamin/Caff 50-325-40 1 tab PO Q6HR PRN #10 tab 08/21/18 Unknown Rx [Fioricet 50-325-40] Carvedilol [Coreg] 6.25 mg PO BID #60 tablet 08/21/18 Unknown Rx Pantoprazole [Protonix TAB] 40 mg PO QDAY #30 tablet 08/21/18 Unknown Rx amLODIPine [Norvasc] 10 mg PO QDAY #30 tablet 08/21/18 Unknown Rx metFORMIN [Glucophage] 500 mg PO BID #60 tablet 03/21/19 Unknown Rx Active Medications: Generic Name Dose Route Start Last Admin Trade Name Vladq PRN Reason Stop Dose Admin Acetaminophen 650 mg 03/19/19 20:21 Tylenol PO Q4H PRN Pain MILD(1-3)/Fever >100.5/FONSECA Albuterol 2.5 mg 03/19/19 20:21 Proventil IH Q4HRT PRN Shortness Of Breath Amlodipine Besylate 10 mg 03/20/19 15:00 03/20/19 15:41 Norvasc PO 10 mg QDAY KEITH Administration Atorvastatin Calcium 40 mg 03/20/19 22:00 03/20/19 22:08 Lipitor PO 40 mg QHS KEITH Administration Carvedilol 6.25 mg 03/20/19 22:00 03/20/19 22:08 Coreg PO 6.25 mg BID KEITH Administration Dextrose 50 ml 03/20/19 09:00 D50w (25gm) Syringe IV PRN PRN Hypoglycemia Ceftriaxone Sodium 1 gm in 50 mls @ 100 mls/hr 03/19/19 21:00 03/20/19 22:07 Rocephin/Ns 1 Gm/50 Ml IV 100 mls/hr Q24H KEITH Administration Protocol Insulin Glargine 10 units 03/20/19 22:00 03/20/19 22:09 Lantus SUB-Q Not Given QHS KEITH Insulin Human Lispro 0 unit 03/20/19 11:30 03/20/19 22:07 Humalog SUB-Q 8 unit ACHS [facility] Administration Protocol Ondansetron HCl 4 mg 03/19/19 20:21 Zofran IV Q8H PRN Nausea And Vomiting Oxycodone/Acetaminophen 1 tab 03/19/19 20:21 Percocet 5/325 PO Q6H PRN Pain, Moderate (4-6) Pantoprazole Sodium 40 mg 03/20/19 10:00 03/20/19 10:36 Protonix PO 40 mg QDAY KEITH Administration Pantoprazole Sodium 40 mg 03/20/19 15:00 03/20/19 15:40 Protonix PO Not Given QDAY KEITH Sodium Chloride 10 ml 03/19/19 22:00 03/20/19 22:10 Sodium Chloride Flush Syringe 10 Ml IV 10 ml BID KEITH Administration Sodium Chloride 10 ml 03/19/19 20:21 Sodium Chloride Flush Syringe 10 Ml IV PRN PRN LINE FLUSH
[2019-03-21] MEDS: HumaLOG SUB-Q SCH ×4 (08:45→22:00)
--- NOTE | 2019-03-21 09:10 | Discharge Summary ---
Providers - Providers Date of Admission: 03/19/19 20:21 Attending physician: MONICA MITCHELL MD 03/19/19 20:21 Consult to Physician [CONS] Routine Comment: Consulting Provider: BRIDGETTE GREEN Physician Instructions: Reason For Exam: myelodysplastic syndrome 03/20/19 18:21 Consult to Interventional Radiology [CONS] Routine Consulting Provider: NOA VAZQUEZ Reason For Exam: CT guided BMBX Primary care physician: NAILING MACHINE FEEDER Hospitalization Reason for admission: Anemia, DM2 Condition: Good Procedures: bone marrow biopsy Hospital course: 48 YO Female with Obesity, HTN, HLD, GERD, Migraine Headache, DM2 recently diagnosed presented to ED for evaluation. Pt states that she experienced pain in her chest, however upon further evaluation the patient localizes her abdomen as the site of the discomfort. Pt states that she has experienced discomfort in her abdomen over the past 4 days. Pt reports that her episodes last for about 4 minutes, and radiates across her abdomen. Pt acknowledges approximately 4-5 episodes daily. Pt acknowledges weakness, decreased exercise tolerance, and shortness of breath with exertion. EMS notified, and upon arrival the patient was transported to [facility]. Pt seen and evaluated in ED and found to have UTI, and clinical symptoms and lab findings concerning for MDS. Pt transfused with PRBC. PT denies fever, chills, CP uopn further questioning, back pain, BRBPR, Hemoptysis, Dark stool, prolonged travel, immobility, or recent ill contacts. PT admitted to medical floor with remote telemetry. Hematology service consulted in ED. Prior admission on 08/21/18 reviewed. All listed medication reconciled at time of admission. At presentation her hemoglobin was 6.9 and she was transfused was on intravenous fluid and posttransfusion hemoglobin was 9.9. Patient's chest pain and weakness subsided. Hematology oncology was consulted and recommended bone marrow biopsy and he will follow the result as outpatient in his office. Patient was diagnosed with diabetes mellitus a week ago. Patient's hemoglobin A1c was 7.8. Patient was tested with metformin 500 mg by mouth twice a day and advised to increase based on tolerance and A1c level. Patient was hemodynamically stable and discharged home in stable condition. Patient will follow with hematology/oncology, cardiology as an outpatient. Appropriate medications were given at the time of discharge. Chest pain is due to anemia. Urine culture was negative. Disposition: TO HOME OR SELFCARE Time spent for discharge: 32 minutes - Discharge Diagnoses (1) Diabetes Status: Acute Qualifiers: Diabetes mellitus type: type 2 (2) HTN (hypertension) Status: Acute Qualifiers: Hypertension type: essential hypertension Qualified Code(s): I10 - Essential (primary) hypertension (3) MDS (myelodysplastic syndrome) Status: Acute (4) Macrocytic anemia Status: Acute (5) Obesity (BMI 30-39.9) Status: Acute (6) Symptomatic anemia Status: Acute Core Measure Documentation - Palliative Care Palliative Care/ Comfort Measures: Not Applicable - Core Measures Any of the following diagnoses?: none Exam - Physical Exam Narrative exam: Not in cardiopulmonary distress. The patient appeared well nourished and normally developed. Vital signs as documented. Head exam is unremarkable. No scleral icterus . Neck is without jugular venous distension, thyromegaly, or carotid bruits. Lungs are clear to auscultation. Cardiac exam reveals regular rate and Rhythm. Abdominal exam reveals normal bowel sounds, no masses, no organomegaly and no aortic enlargement. Extremities are nonedematous and both femoral and pedal pulses are normal. CERTIFIED NURSE PRACTITIONER: Alert and oriented 3. No focal weakness. - Constitutional Vitals: Temp Pulse Resp BP Pulse Ox 98.5 F 76 18 121/72 98 03/21/19 05:37 03/21/19 05:37 03/21/19 05:37 03/21/19 05:37 03/21/19 05:37 Plan Activity: no restrictions Weight Bearing Status: Full Weight Bearing Diet: diabetic Follow up with: BRIDGETTE GREEN MD [Staff Physician] - 3-5 Days KEILA CASEY MD [Staff Physician] - 7 Days PILAR WALLACE MD [Staff Physician] - 10 Days Prescriptions: metFORMIN [Glucophage] 500 mg PO BID #60 tablet
[2019-03-21] MEDS: COREG PO SCH ×2 (10:38→22:00)
[2019-03-21] MEDS: NORVASC PO SCH (10:39)
[2019-03-21 11:20] LABS: INR 1.11 (0.87-1.13); Partial Thromboplastin Time 24.7 Sec. (24.2-36.6)
[2019-03-21] MEDS ORDERED: DILAUDID ONE (12:09)
[2019-03-21] MEDS ORDERED: ZOFRAN ONE ×2 (12:09→13:21)
[2019-03-21] MEDS ORDERED: ZOFRAN IV NR (12:10)
[2019-03-21] MEDS: DILAUDID IV NR ×2 (12:26→12:38)
--- NOTE | 2019-03-21 13:46 | Cat Scan Report ---
CT-guided bone marrow aspiration and biopsy INDICATION : Cytopenia COMPARISON: None PROCEDURE: The risks (including but not limited to bleeding and infection) and benefits were explain ed to the patient and informed consent was obtained. All CT examinations performed at this facility utilize dose modulation, iterative reconstruction or weight-based dosing, when appropriate, to reduce radiation dose to as low as reasonably achievable. A time out procedure was performed. The procedu re site was prepped and draped in the usual sterile fashion and lidocaine was used for local anesthes ia. Anxiolysis was accomplished with IV Dilaudid and Zofran. Under CT guidance, the right posterior iliac wing was selected for biopsy. An 11 gauge needle was ad vanced to the posterior margin of the iliac wing, cortex breached, and 4.5 mL bone marrow aspirate ob tained. The needle was then advanced and a bone marrow biopsy was obtained measuring approximately 2 cm. Samples were given directly to the smog technician who was present during the exam. The patient tolerated the procedure well with no complications. IMPRESSION: Technically successful bone marrow aspirate and biopsy. Signer Name: Harrison Juarez Jr, MD Signed: 03/21/2019 1:41 PM Workstation Name: [id number]
[2019-03-21] MEDS ORDERED: REGLAN IV ONE (15:55)
[2019-03-21] MEDS: SODIUM CHLORIDE FLUSH SYRINGE 10 ML IV SCH ×2 (16:09→22:01)
[2019-03-21] MEDS: PROTONIX PO SCH ×2 (18:23→18:44)
[2019-03-21] MEDS: ROCEPHIN/NS 1 GM/50 ML 1 GM/50 ML BAG IV SCH (21:57)
[2019-03-21] MEDS: LANTUS SUB-Q SCH (22:00)
[2019-03-22 06:19] VITALS: BP 101/66
[2019-03-22] MEDS ORDERED: LANTUS SUB-Q NR (07:23)
[2019-03-22] MEDS ORDERED: LANTUS SUB-Q ONE (07:23)
--- NOTE | 2019-03-22 08:53 | Progress Note ---
Assessment and Plan Assessment and plan: Symptomatic anemia with chest pain - Cardiac enzymes are negative, CTA negative for PE or pneumonia - Patient hemoglobin was 6.9 and transfused a unit of blood - We'll check posttransfusion H&H - Hematology oncology consult placed Diabetes mellitus with hyperglycemia - We'll get hemoglobin A1c, sliding scale insulin and basal insulin for now - Accu-Chek, ADA diet, we will adjust insulin as needed Hypertension - resumed home medications UTI - On IV antibiotic DVT prophylaxis, SCD because of anemia Disposition; Plan was to DC her after BM biopsy but the patient had N/V and generalized weakness and keep her overnight for monitoring. - Patient Problems (1) Diabetes Current Visit: Yes Status: Acute Qualifiers: Diabetes mellitus type: type 2 (2) HTN (hypertension) Current Visit: Yes Status: Acute Qualifiers: Hypertension type: essential hypertension Qualified Code(s): I10 - Essential (primary) hypertension (3) MDS (myelodysplastic syndrome) Current Visit: Yes Status: Acute (4) Macrocytic anemia Current Visit: Yes Status: Acute (5) Obesity (BMI 30-39.9) Current Visit: Yes Status: Acute (6) Symptomatic anemia Current Visit: Yes Status: Acute History Interval history: Patient was seen and evaluated this morning, chest pain resolved. No shortness of breath or dizziness. Hospitalist Physical - Physical exam Narrative exam: Not in cardiopulmonary distress. The patient appeared well nourished and normally developed. Vital signs as documented. Head exam is unremarkable. No scleral icterus . Neck is without jugular venous distension, thyromegaly, or carotid bruits. Lungs are clear to auscultation. Cardiac exam reveals regular rate and Rhythm. Abdominal exam reveals normal bowel sounds, no masses, no organomegaly and no aortic enlargement. Extremities are nonedematous and both femoral and pedal pulses are normal. VICE PRESIDENT MEDIA RELATIONS: Alert and oriented 3. No focal weakness. - Constitutional Vitals: Temp Pulse Resp BP Pulse Ox 98.7 F 71 18 101/66 98 03/22/19 05:29 03/22/19 05:29 03/22/19 05:29 03/22/19 05:29 03/22/19 05:29 General appearance: Present: mild distress Results - Labs CBC & Chem 7: 03/20/19 Unknown 03/20/19 Unknown Labs: Laboratory Last Values WBC 4.9 K/mm3 (4.5-11.0) 07/02/19 Unknown RBC 2.92 M/mm3 (3.65-5.03) L 03/20/19 Unknown Hgb 9.9 gm/dl (10.1-14.3) L D 03/20/19 Unknown Hct 29.0 % (30.3-42.9) L D 03/20/19 Unknown MCV 99 fl (79-97) H 03/20/19 Unknown MCH 34 pg (28-32) H 03/20/19 Unknown MCHC 34 % (30-34) 03/20/19 Unknown RDW 27.4 % (13.2-15.2) H 03/20/19 Unknown Plt Count 90 K/mm3 (140-440) L 03/20/19 Unknown Add Manual Diff Complete 03/20/19 Unknown Total Counted 100 03/20/19 Unknown Seg Neuts % (Manual) 59.0 % (40.0-70.0) 03/20/19 Unknown 3.0 % 03/20/19 Unknown 26.0 % (13.4-35.0) 03/20/19 Unknown Reactive Lymphs % (Man) 0 % 03/20/19 Unknown 12.0 % (0.0-7.3) H 03/20/19 Unknown 0 % (0.0-4.3) 03/20/19 Unknown 0 % (0.0-1.8) 03/20/19 Unknown 0 % 03/20/19 Unknown 0 % 03/20/19 Unknown 0 % 03/20/19 Unknown 0 % 03/20/19 Unknown Nucleated RBC % 3.0 % (0.0-0.9) H 03/20/19 Unknown Seg Neutrophils # Man 2.9 K/mm3 (1.8-7.7) 03/20/19 Unknown Band Neutrophils # 0.1 K/mm3 03/20/19 Unknown 1.3 K/mm3 (1.2-5.4) 03/20/19 Unknown Abs React Lymphs (Man) 0.0 K/mm3 03/20/19 Unknown 0.6 K/mm3 (0.0-0.8) 03/20/19 Unknown 0.0 K/mm3 (0.0-0.4) 03/20/19 Unknown 0.0 K/mm3 (0.0-0.1) 03/20/19 Unknown 0.0 K/mm3 03/20/19 Unknown 0.0 K/mm3 03/20/19 Unknown 0.0 K/mm3 03/20/19 Unknown Blast Cells # 0.0 K/mm3 03/20/19 Unknown Pathologist Review 03/20/19 Unknown Hypersegmented Neuts Not Reportable 03/20/19 Unknown Hyposegmented Neuts Not Reportable 03/20/19 Unknown Hypogranular Neuts Not Reportable 03/20/19 Unknown Not Reportable 03/20/19 Unknown Not Reportable 03/20/19 Unknown Not Reportable 03/20/19 Unknown Not Reportable 03/20/19 Unknown Not Reportable 03/20/19 Unknown Not Reportable 03/20/19 Unknown Consistent w auto 03/20/19 Unknown Not Reportable 03/20/19 Unknown Plt Clumps, EDTA Not Reportable 03/20/19 Unknown Not Reportable 03/20/19 Unknown Not Reportable 03/20/19 Unknown Not Reportable 03/20/19 Unknown Plt Morphology Comment Not Reportable 03/20/19 Unknown RBC Morphology Not Reportable 03/20/19 Unknown Dimorphic RBCs Not Reportable 03/20/19 Unknown Not Reportable 03/20/19 Unknown Not Reportable 03/20/19 Unknown Not Reportable 03/20/19 Unknown 2+ 03/20/19 Unknown 1+ 03/20/19 Unknown 1+ 03/20/19 Unknown Not Reportable 03/20/19 Unknown Not Reportable 03/20/19 Unknown Not Reportable 03/20/19 Unknown Not Reportable 03/20/19 Unknown Not Reportable 03/20/19 Unknown Not Reportable 03/20/19 Unknown Not Reportable 03/20/19 Unknown Not Reportable 03/20/19 Unknown Not Reportable 03/20/19 Unknown Not Reportable 03/20/19 Unknown Not Reportable 03/20/19 Unknown Not Reportable 03/20/19 Unknown Not Reportable 03/20/19 Unknown Acanthocytes (Spur) Not Reportable 03/20/19 Unknown Rouleaux Not Reportable 03/20/19 Unknown Not Reportable 03/20/19 Unknown Not Reportable 03/20/19 Unknown Not Reportable 03/20/19 Unknown Not Reportable 03/20/19 Unknown <8 mg/dL (43-212) L 03/19/19 20:39 Hem Pathologist Commnt Sent to pathology 03/20/19 Unknown PT 14.0 Sec. (12.2-14.9) 03/21/19 10:40 INR 1.11 (0.87-1.13) 03/21/19 10:40 APTT 24.7 Sec. (24.2-36.6) 03/21/19 10:40 1457.01 ng/mlDDU (0-234) H 03/19/19 14:20 Sodium 139 mmol/L (137-145) 03/20/19 Unknown Potassium 4.0 mmol/L (3.6-5.0) 03/20/19 Unknown Chloride 102.8 mmol/L (98-107) 03/20/19 Unknown Carbon Dioxide 22 mmol/L (22-30) 03/20/19 Unknown 18 mmol/L 03/20/19 Unknown BUN 7 mg/dL (7-17) 03/20/19 Unknown 0.8 mg/dL (0.7-1.2) 03/20/19 Unknown Estimated GFR > 60 ml/min 03/20/19 Unknown 9 % 03/20/19 Unknown Glucose 288 mg/dL (65-100) H 03/20/19 Unknown POC Glucose 164 (70-105) H 03/22/19 07:40 7.8 % (4-6) H 03/20/19 Unknown Calcium 8.6 mg/dL (8.4-10.2) 03/20/19 Unknown Iron 43 ug/dL (37-170) 03/19/19 20:39 TIBC 294 mcg/dL (250-450) 03/19/19 20:39 % Saturation 14.63 % 03/19/19 20:39 232 mg/dl (192-382) 03/19/19 20:39 0.60 mg/dL (0.1-1.2) 03/20/19 Unknown AST 14 units/L (5-40) 03/20/19 Unknown ALT 18 units/L (7-56) 03/20/19 Unknown 48 units/L (35-129) 03/20/19 Unknown 2020 units/L (91-180) H 03/19/19 20:39 < 0.010 ng/mL (0.00-0.029) 03/19/19 16:30 7.2 g/dL (6.3-8.2) 03/20/19 Unknown 4.0 g/dL (3.9-5) 03/20/19 Unknown 1.3 % 03/20/19 Unknown 35 units/L (13-60) 03/19/19 14:20 Vitamin B12 268.3 pg/mL (211-911) 03/19/19 20:39 RBC Folic Acid >1000 ng/mL (>280) 03/19/19 20:39 TSH 1.810 mlU/mL (0.270-4.200) 03/19/19 20:39 Free T4 1.37 ng/dL (0.76-1.46) 03/19/19 20:39 Yellow (Yellow) 03/19/19 16:56 Slightly-cloudy (Clear) 03/19/19 16:56 5.0 (5.0-7.0) 03/19/19 16:56 Ur Specific [place] 1.012 (1.003-1.030) 03/19/19 16:56 <15 mg/dl mg/dL (Negative) 03/19/19 16:56 Neg mg/dL (Negative) 03/19/19 16:56 Neg mg/dL (Negative) 03/19/19 16:56 Neg (Negative) 03/19/19 16:56 Neg (Negative) 03/19/19 16:56 Neg (Negative) 03/19/19 16:56 < 2.0 mg/dL (<2.0) 03/19/19 16:56 Ur Leukocyte Esterase Mod (Negative) 03/19/19 16:56 15.0 /HPF (0.0-6.0) H 03/19/19 16:56 2.0 /HPF (0.0-6.0) 03/19/19 16:56 U Epithel Cells (Auto) 3.0 /HPF (0-13.0) 03/19/19 16:56 1+ /HPF (Negative) 03/19/19 16:56 Few /HPF 03/19/19 16:56 HIV 1&2 Antibody Rapid Non react (Non React) 03/19/19 20:39 Non react (Non React) 03/19/19 20:39 Blood Type O POSITIVE 03/19/19 18:29 Antibody Screen Negative 03/19/19 18:29 Crossmatch See Detail 03/19/19 18:29 Active Medications - Current Medications Current Medications: Generic Name Dose Route Start Last Admin Trade Name Dannie PRN Reason Stop Dose Admin Acetaminophen 650 mg 03/19/19 20:21 Tylenol PO Q4H PRN Pain MILD(1-3)/Fever >100.5/FONSECA Albuterol 2.5 mg 03/19/19 20:21 Proventil IH Q4HRT PRN Shortness Of Breath Amlodipine Besylate 10 mg 03/20/19 15:00 03/21/19 10:39 Norvasc PO 10 mg QDAY KEITH Administration Atorvastatin Calcium 40 mg 03/20/19 22:00 03/21/19 21:59 Lipitor PO 40 mg QHS KEITH Administration Carvedilol 6.25 mg 03/20/19 22:00 03/21/19 22:00 Coreg PO 6.25 mg BID KEITH Administration Dextrose 50 ml 03/20/19 09:00 D50w (25gm) Syringe IV PRN PRN Hypoglycemia Insulin Glargine 10 units 03/20/19 22:00 03/21/19 22:00 Lantus SUB-Q 10 units QHS KEITH Administration Insulin Glargine 10 units 03/22/19 07:23 Lantus SUB-Q 03/22/19 09:30 ONCE NR Insulin Human Lispro 0 unit 03/20/19 11:30 03/21/19 22:00 Humalog SUB-Q 8 unit ACHS KEITH Administration Protocol Ondansetron HCl 4 mg 03/19/19 20:21 03/21/19 13:20 Zofran IV 4 mg Q8H PRN Administration Nausea And Vomiting Pantoprazole Sodium 40 mg 03/20/19 10:00 03/21/19 18:44 Protonix PO 40 mg QDAY KEITH Administration Sodium Chloride 10 ml 03/19/19 22:00 03/21/19 22:01 Sodium Chloride Flush Syringe 10 Ml IV 10 ml BID KEITH Administration Sodium Chloride 10 ml 03/19/19 20:21 Sodium Chloride Flush Syringe 10 Ml IV PRN PRN LINE FLUSH
[2019-03-22] MEDS: PROTONIX PO SCH (09:50)
[2019-03-22] MEDS: NORVASC PO SCH (09:50)
[2019-03-22] MEDS: COREG PO SCH (09:50)
[2019-03-22] MEDS: HumaLOG SUB-Q SCH (09:51)
[2019-03-22] MEDS: SODIUM CHLORIDE FLUSH SYRINGE 10 ML IV SCH (09:55)
== END 2019-03-22 10:40 | disposition home or self-care (01) | DRG 812 ==
LOC: ED 13:40 → 3A 20:21
PROVIDERS: ADMIT Internal Medicine; ATTEND Internal Medicine
PROC: 30233N1 Transfusion of Nonautologous Red Blood Cells into Peripheral Vein, Percutaneous Approach (ICD-10-PCS; principal; 2019-03-20)
PROC: 07DR3ZX Extraction of Iliac Bone Marrow, Percutaneous Approach, Diagnostic (ICD-10-PCS; 2019-03-21)
DX: D46.9 Myelodysplastic syndrome, unspecified (principal); N39.0 Urinary tract infection, site not specified; D53.9 Nutritional anemia, unspecified; R07.9 Chest pain, unspecified; E11.65 Type 2 diabetes mellitus with hyperglycemia; I10 Essential (primary) hypertension; E66.9 Obesity, unspecified; G43.909 Migraine, unspecified, not intractable, without status migrainosus; R55 Syncope and collapse; E78.2 Mixed hyperlipidemia; K21.0 Gastro-esophageal reflux disease with esophagitis; Z98.51 Tubal ligation status; Z82.49 Family history of ischemic heart disease and other diseases of the circulatory system; Z68.36 Body mass index [BMI] 36.0-36.9, adult; Z79.82 Long term (current) use of aspirin; Z79.899 Other long term (current) drug therapy
CPT/HCPCS: 36415; 38222; 71046; 71275; 74177; 80053; 81001; 82271; 82607; 82747; 82962; 83010; 83036; 83550; 83615; 83690; 84439; 84443; 84484; 85007; 85014; 85018; 85025; 85027; 85097; 85379; 85610; 85730; 86850; 86900; 86901; 86920; 87086; 87806; 88161; 88184; 88185; 88230; 88291; 88305; 88311; 88313; 93005; 93010; 96361; 96374; 96375; 96376; G0378; A9270-GY; J0696; J1170; J1815; J2405; J2765; J3420; J7030; J7040; P9016; Q9967

== ENCOUNTER 2019-10-23 11:23 | Emergency (ER) | payer OTHER ==
[2019-10-23] MEDS ORDERED: IBUPROFEN 600 MG TAB PO ONE (13:09)
--- NOTE | 2019-10-23 13:11 | Event Note ---
ED Screening Note Date of service: 10/23/19 Time: 13:10 ED Screening Note: 49 y/o female right hand dominant sent form urgent care, utd with Td, p/w foreign body in right 4th digit and associated pain no other complaints obtain xr finger local exam and exploration reassess Vital Signs 10/23/19 13:09 Temperature 98.3 F Pulse Rate 76 Respiratory 18 Rate Blood Pressure 158/99 O2 Sat by Pulse 98 Oximetry This initial assessment/diagnostic orders/clinical plan/treatment(s) is/are subject to change based on patients health status, clinical progression and re- assessment by fellow clinical providers in the ED. Further treatment and workup at subsequent clinical providers discretion. Patient/guardian urged not to elope from the ED as their condition may be serious if not clinically assessed and managed. Initial orders include:
--- NOTE | 2019-10-23 14:27 | XRay Report ---
RIGHT FINGERS HISTORY: Fourth digit pain and possible foreign body. COMPARISON: None. TECHNIQUE: 3 views of the right hand and digits were obtained. FINDINGS: Bones: No fracture or dislocation. 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 Soft tissues: A linear radiopaque foreign body is identified superficially at the lateral skin margin of the distal phalanx of the ring finger. It measures 3 to 4 mm in length and is identified on 3 vie ws. There is also suggestion of a second foreign body in the web space between the proximal ring fing er and middle finger. This is only identified on one view. No soft tissue swelling or soft tissue air . Additional findings: None. IMPRESSION: 1. A 3 to 4 mm linear foreign body in the superficial soft tissues at the lateral aspect of the dista l ring finger. 2. A smaller foreign body in the web space between the third and fourth digits. 3. Minimal osteoarthritis and no fracture. Signer Name: Toni Arias MD Signed: 10/23/2019 2:22 PM Workstation Name: [id number]
--- NOTE | 2019-10-23 15:23 | Emergency Department Report ---
ED Laceration HPI - HPI Chief Complaint: Wound/Laceration Stated Complaint: RT FINGER CUT AT WORK Time Seen by Provider: 10/23/19 15:23 Occurred When: Today Location: Upper Extremity Tetanus Status: Up to Date (2016) Laceration Symptoms: Yes Foreign Body Sensation, Yes Pain, No Numbness, No Weakness Other History: This is a 49-year-old male nontoxic, well nourished in appearance, no acute signs of distress presents to the ED with c/o of left index finger foreign body. Patient stated she cut herself by a flower vase. Patient denies decreased sensation or range of motion. Patient stated bleeding is under control. Denies any numbness, tingling, fever, chills, nausea, vomiting, chest pain, shortness of breath, headache or stiff neck. Patient denies any allergies to significant past medical history. Patient is that she is up-to-date with tetanus. ED Review of Systems ROS: Stated complaint: RT FINGER CUT AT WORK Other details as noted in HPI Constitutional: denies: chills, fever Eyes: denies: eye pain, eye discharge, vision change ENT: denies: ear pain, throat pain Respiratory: denies: cough, shortness of breath, wheezing Cardiovascular: denies: chest pain, palpitations Endocrine: no symptoms reported Gastrointestinal: denies: abdominal pain, nausea, diarrhea Genitourinary: denies: urgency, dysuria, discharge Musculoskeletal: denies: back pain, joint swelling, arthralgia Skin: denies: rash, lesions Neurological: denies: headache, weakness, paresthesias Psychiatric: denies: anxiety, depression Hematological/Lymphatic: denies: easy bleeding, easy bruising ED Past Medical Hx - Past Medical History Previous Medical History?: Yes Hx Hypertension: Yes Hx Heart Attack/AMI: No Hx Congestive Heart Failure: No Hx Diabetes: Yes (NEWLY DIAGNOSED) Hx Deep Vein Thrombosis: No Hx Sickle Cell Disease: No Hx Asthma: No Hx COPD: No Hx Tuberculosis: No Hx HIV: No Additional medical history: NIDDM - Surgical History Past Surgical History?: Yes Hx Coronary Stent: No Hx Pacemaker: No Hx Internal Defibrillator: No Additional Surgical History: TUBAL LIGATION, Fibroids - Social History Smoking Status: Never Smoker Substance Use Type: None - Medications Home Medications: Home Medications Medication Instructions Recorded Confirmed Last Taken Type Aspirin EC [Halfprin EC] 81 mg PO QDAY #30 tablet 12/03/18 Unknown Rx AtorvaSTATin [Lipitor] 40 mg PO QHS #30 tablet 08/21/18 Unknown Rx Butalb/Acetamin/Caff 50-325-40 1 tab PO Q6HR PRN #10 tab 08/21/18 Unknown Rx [Fioricet 50-325-40] Pantoprazole [Protonix TAB] 40 mg PO QDAY #30 tablet 08/21/18 Unknown Rx amLODIPine 10 mg PO QDAY #30 tablet 08/21/18 Unknown Rx carvediloL [Coreg] 6.25 mg PO BID #60 tablet 08/21/18 Unknown Rx metFORMIN [Glucophage] 500 mg PO BID #60 tablet 03/21/19 Unknown Rx Acetaminophen/Codeine [Tylenol 1 tab PO Q6H PRN #14 tab 10/23/19 Unknown Rx /Codeine # 3 tab] Sulfamethoxazole/Trimethoprim 1 each PO BID #14 tablet 10/23/19 Unknown Rx [Bactrim DS TAB] Laceration Physical Exam - Exam General: Vital signs noted. No distress. Alert and acting appropriately. Laceration Location: Upper Extremity Laceration Exam: Yes Foreign Body, Yes Normal Distal CMS, No Exposed Tendon, Vessel, or Nerve, No Tendon Injury ED Course Vital Signs 10/23/19 13:09 Temperature 98.3 F Pulse Rate 76 Respiratory 18 Rate Blood Pressure 158/99 O2 Sat by Pulse 98 Oximetry - Reevaluation(s) Reevaluation #1: 10/23/19 16:51 Patient is speaking in full sentences with no signs of distress noted. - Procedure Description Procedures done: Under sterile field, I used Betadine to clean the area. I then used 40 mL of normal saline to flush the area. I then used 2% lidocaine plain and injected 3 mL to distal index finger for digital block. I then used small forceps and removed the glass foreign body. There is no laceration that needs suturing. I then applied a sterile 4 x 4 with tape. Minimal bleeding noted but is under control. Patient tolerated procedure well with no signs of distress. ED Medical Decision Making - Medical Decision Making This is a 49-year-old male that presents with finger foreign body. Patient is stable and was examined by me. Glass has been removed. Post xrays confirms this as well. Performed and patient tolerated well. A sterile dressing has been applied. Patient was educated on proper wound care. Patient is discharged with Bactrim and Tylenol with codeine and was instructed not to operate any machinery while taking Tylenol with codeine due to drowsiness. Patient was instructed to refer to Follow-up with a primary care doctor in 3-5 days or if symptoms worsen and continue return to emergency room as soon as possible. At time of discharge, the patient does not seem toxic or ill in appearance. No acute signs of distress noted. Patient agrees to discharge treatment plan of care. No further questions noted by the patient. Critical care attestation.: If time is entered above; I have spent that time in minutes in the direct care of this critically ill patient, excluding procedure time. ED Disposition Clinical Impression: Foreign body of finger Disposition: [id number] TO HOME OR SELFCARE Is pt being admited?: No Does the pt Need Aspirin: No Condition: Stable Additional Instructions: Follow-up with a primary care doctor in 3-5 days or if symptoms worsen and continue return to emergency room as soon as possible. Do not operate any machinery while taking Tylenol with codeine as this may cause drowsiness. Prescriptions: Sulfamethoxazole/Trimethoprim [Bactrim DS TAB] 1 each PO BID #14 tablet Acetaminophen/Codeine [Tylenol /Codeine # 3 tab] 1 tab PO Q6H PRN #14 tab PRN Reason: Pain, Moderate (4-6) Referrals: MANAS SABILLON MD [Primary Care Provider] - 3-5 Days PRIMARY CAREMD [Referring] - 3-5 Days ISRAEL RUIZ MD [Staff Physician] - 3-5 Days Forms: Work/School Release Form(ED)
--- NOTE | 2019-10-23 17:19 | XRay Report ---
XR finger(s) 2+V RT INDICATION / CLINICAL INFORMATION: post foreign body removal. COMPARISON: Radiograph similar on 10/23/2019. FINDINGS: BONES/JOINT(S): No acute fracture or subluxation. SOFT TISSUES: There is a residual foreign body in the webspace between the third and fourth interspac es. The foreign-body in the ring finger distally has been removed. ADDITIONAL FINDINGS: None. Signer Name: Michael Alaniz MD Signed: 10/23/2019 5:15 PM Workstation Name: [id number]
[2019-10-23 17:39] VITALS: BP 164/91
== END 2019-10-23 17:38 | disposition home or self-care (01) ==
LOC: ED 11:23
DX: S60.450A Superficial foreign body of right index finger, initial encounter (principal); I10 Essential (primary) hypertension; E11.9 Type 2 diabetes mellitus without complications; Z98.51 Tubal ligation status; Z79.899 Other long term (current) drug therapy; W25.XXXA Contact with sharp glass, initial encounter; Y93.89 Activity, other specified; Y92.89 Other specified places as the place of occurrence of the external cause; Y99.0 Civilian activity done for income or pay

== ENCOUNTER 2022-06-08 07:04 | Emergency (ER) | payer SELFPAY ==
[2022-06-08 07:40] VITALS: BP 162/104
== END 2022-06-08 09:00 | disposition left against medical advice (07) ==
LOC: ED 07:04
DX: R11.10 Vomiting, unspecified (principal); R42 Dizziness and giddiness; R50.9 Fever, unspecified; Z53.21 Procedure and treatment not carried out due to patient leaving prior to being seen by health care provider